=== PATIENT | female | born 1965 | race Caucasian/White ===

== ENCOUNTER → 2017-04-24 | Outpatient (CLI) | payer OTHER, MEDICARE | LOC: MAMO 04-15 11:30 | DX: Z12.31 Encounter for screening mammogram for malignant neoplasm of breast (principal) ==

== ENCOUNTER → 2020-11-21 | Outpatient (CLI) | payer OTHER, MEDICARE ==
[~2020-11-21] MED LIST: ASPIRIN CHEWABL81 MG PO; LIPITOR20 MG PO; MAXALT10 MG PO; NEURONTIN400 MG PO; NITROSTAT0.4 MG SL; NORCO 10-325 T1 EACH PO; PLAVIX 75 MG TA75 MG PO
== END ==
LOC: EXRD 10:30
DX: M81.0 Age-related osteoporosis without current pathological fracture (principal); M47.816 Spondylosis without myelopathy or radiculopathy, lumbar region; M85.88 Other specified disorders of bone density and structure, other site
CPT/HCPCS: 77080

== ENCOUNTER 2021-04-23 15:27 | Emergency (ER) | payer OTHER ==
[2021-04-23] MEDS ORDERED: CYCLOBENZAPRINE10 MG PO (17:34)
[2021-04-23] MEDS ORDERED: NAPROSYN500 MG PO (17:34)
== END 2021-04-23 17:05 | disposition home or self-care (01) ==
LOC: ER1 15:27
DX: S39.012A Strain of muscle, fascia and tendon of lower back, initial encounter (principal); I11.9 Hypertensive heart disease without heart failure; F17.200 Nicotine dependence, unspecified, uncomplicated; V49.40XA Driver injured in collision with unspecified motor vehicles in traffic accident, initial encounter; Y92.410 Unspecified street and highway as the place of occurrence of the external cause
CPT/HCPCS: 72131; 99284; J1885

== ENCOUNTER → 2021-06-08 | Outpatient (CLI) | payer OTHER, MEDICARE ==
[~2021-06-08] MED LIST changes: +CYCLOBENZAPRINE10 MG PO; +NAPROSYN500 MG PO
[2021-06-08 13:22] LABS: BUN/CREATININE RATIO 15 (0-10)
[2021-06-09 08:12] LABS: VITAMIN D, 25-HYDROXY 44.5 ng/mL (30.0-100.0)
== END ==
LOC: LAB 12:02
PROVIDERS: Internal Medicine
DX: M81.0 Age-related osteoporosis without current pathological fracture (principal)
CPT/HCPCS: 36415; 80069; 82523; 82570; 84080